=== PATIENT | male | born 1960 | race Caucasian/White ===

== ENCOUNTER 2017-09-25 13:05 | Emergency (ER) | payer OTHER ==
[~2017-09-25] VITALS: Ht 193 cm; Wt 106.6 kg
[~2017-09-25 13:05] MED LIST: ALBUTEROL0.09 MG/A1 INH; ALBUTEROL0.09 MG/A2 IH; ALL DAY ALLERGY10 MG PO; CELEXA40 MG PO; CLONAZEPAM0.5 MG PO; CYCLOBENZAPRINE10 MG PO; DULERA100 INH; LOPRESSOR25 MG PO; LOW DOSE ASPIRI81 MG PO; Lopressor25 MG PO; MIRTAZAPINE15 M2 PO; MUSCLE RELAXER; NAPROSYN500 MG PO; NEURONTIN300 MG PO; NEURONTIN400 MG PO; PENICILLIN VK500 MG PO; PERCOCET 325 MG1 TA2 PO; PREDNICOT20 MG PO; PREDNISONE50 MG PO; PROAIR HFA8.5 GM INH; PROVENTIL0.09 MG/AC INH; Peridex 473 ML473 ML PO; ROPINIROLE HYDRO1 MG PO; ROPINIROLE HYDRO2 M2 PO; SOMA350 MG PO; SPIRIVA18 MCG IH; SPIRIVA18 MCG PO; TRAMADOL50 MG PO; VICODIN ES 7501 TA1 PO; VITAMIN D50000 I3 PO; ZITHROMAX250 MG PO; ZOLPIDEM10 M1 PO
[2017-09-25 14:16] LABS: BASO # 0.1 10*3/uL (0.0-0.1); BASO % 0.8 % (0.0-1.0); EOS # 0.3 10*3/uL (0.0-0.4); EOS % 3.4 % (1.0-4.0); HEMATOCRIT 46.1 % (42.0-52.0); HEMOGLOBIN 15.7 g/dl (14.0-18.0); LYMPH # 1.8 10*3/uL (1.3-4.4); LYMPH % 24.5 % (27.0-41.0); MEAN CELL VOLUME 87.6 fl (80.0-94.0); MEAN CORPUSCULAR HGB 29.8 pg (27.0-31.0); MEAN CORPUSCULAR HGB CONC 34.1 g/dl (33.0-37.0); MEAN PLATELET VOLUME 10.5 fl (9.6-12.3); MONO # 0.8 10*3/uL (0.1-1.0); MONO % 10.6 % (3.0-9.0); NEUT # 4.4 10*3/uL (2.3-7.9); NEUT % 60.3 % (47.0-73.0); PLATELET COUNT AUTOMATED 230 10*3/uL (130-400); RED BLOOD COUNT 5.26 10*6/uL (4.50-5.90); RED CELL DISTRI WIDTH 13.6 % (0-14.5); WHITE BLOOD COUNT 7.3 10*3/uL (4.8-10.8)
[2017-09-25 14:33] LABS: ALBUMIN 3.9 gm/dl (3.1-4.5); ALKALINE PHOSPHATASE 107 U/L (45-117); BUN 21 mg/dl (7-24); CHLORIDE 105 mmol/L (98-107); CREATININE 0.83 mg/dL (0.70-1.30); POTASSIUM 4.2 mmol/L (3.5-5.1); SGOT/AST 37 IU/L (3-35); SGPT/ALT 46 U/L (12-78); SODIUM 139 mmol/L (136-145); TOTAL PROTEIN 7.5 gm/dL (6.4-8.2)
== END 2017-09-25 15:35 | disposition home or self-care (01) ==
LOC: ED 13:05
PROVIDERS: Emergency Medicine
DX: R22.2 Localized swelling, mass and lump, trunk (principal); R07.9 Chest pain, unspecified; J44.9 Chronic obstructive pulmonary disease, unspecified; Z88.6 Allergy status to analgesic agent; Z79.899 Other long term (current) drug therapy; Z79.82 Long term (current) use of aspirin; Z87.891 Personal history of nicotine dependence

== ENCOUNTER 2018-09-27 09:54 | Emergency (ER) | payer OTHER ==
[~2018-09-27] VITALS: Ht 193 cm; Wt 111.1 kg
--- NOTE | ~2018-09-27 | EKG ---
[place], [place] ELECTROCARDIOGRAM REPORT NAME: CONNIE NAVARRO UNIT #: [id number] ROOM: DOCTOR: EPIPHANY DRAFT REPORT BIRTHDATE: [birth year] [facility] Test Date: 2018-09-27 Test Time: 11:45:26 Pat Name: CONNIE NAVARRO Department: Room: Gender: [employer] Driver: : [id number] Requested By: BG ROSENBERG Order Number: [id number] Reading MD: Ihsan Cruz MD Measurements Intervals Pandora Rate: 74 P: 19 CA: 157 QRS: 46 QRSD: 82 T: 31 QT: 379 QTc: 421 Interpretive Statements Sinus rhythm Abnormal R-wave progression, early transition No previous ECG available for comparison Electronically Signed On 09-27-2018 16:20:58 PST by Ihsan Cruz MD CM:EKGRPT:ELECTROCARDIOGRAM REPORT [id number] 1620 BG VALENCIA DRAFT REPORT BG ROSENBERG MD
== END 2018-09-27 12:45 | disposition home or self-care (01) ==
LOC: ED 09:54
DX: M54.6 Pain in thoracic spine (principal); R07.81 Pleurodynia; M25.512 Pain in left shoulder; R07.89 Other chest pain; J44.9 Chronic obstructive pulmonary disease, unspecified; F12.10 Cannabis abuse, uncomplicated; Z88.5 Allergy status to narcotic agent; Z88.6 Allergy status to analgesic agent; Z79.899 Other long term (current) drug therapy; Z79.82 Long term (current) use of aspirin; Z87.891 Personal history of nicotine dependence; W00.0XXA Fall on same level due to ice and snow, initial encounter; Y93.89 Activity, other specified; Y92.488 Other paved roadways as the place of occurrence of the external cause; Y99.8 Other external cause status